=== PATIENT | male | born 1980 ===

== ENCOUNTER 2016-10-07 07:06 | Emergency (ER) | payer OTHER ==
[2016-10-07 08:08] VITALS: BP 144/89
--- NOTE | 2016-10-07 08:27 | RAD ---
INDICATION: Right middle finger dislocation, status post external reduction. TECHNIQUE: 3 views of the right middle finger finger were obtained. FINDINGS: There is focal soft tissue swelling at the proximal interphalangeal joint. The bones are in normal alignment. Joint spaces appear maintained. There is a small punctate 1 mm area of calcific density present adjacent to the lateral aspect of the proximal interphalangeal joint suggestive of a small chip fracture. IMPRESSION: 1. STATUS POST EXTERNAL REDUCTION. THE BONES ARE IN NORMAL ALIGNMENT. 2. PROBABLE SMALL PUNCTATE CHIP FRACTURE.
--- NOTE | 2016-10-07 10:56 | UC ---
Jose Martinez Billy, scribed for Blanca Dockery DO on 10/07/16 at 0720 . Hand/Wrist HPI - HPI Summary HPI Summary: Patient is a 35 year-old male coming [place] [facility] [place] with right middle finger pain starting 30 minutes ago while he was playing basketball. Pain was a constant 6/10 ache at onset. Patient states that the finger feels numb and swollen. He also states he has had intermittent headaches and sinus congestion recently. He denies any other complaints at this time. - History Of Current Complaint Chief Complaint: UCUpperExtremity Stated Complaint: FINGER INJURY Time Seen by Provider: 10/07/16 07:25 Hx Obtained From: Patient Mechanism Of Injury: Playing basketball Onset/Duration: Sudden Onset, Lasting Minutes, Still Present Severity Initially: Moderate Severity Currently: Moderate Pain Intensity: 6 Pain Scale Used: 0-10 Numeric Character Of Pain: Aching Aggravating Factor(s): Movement Alleviating: Nothing Associated Signs And Symptoms: Positive: Swelling, Numbness/Tingling - Allergies/Home Medications Allergies/Adverse Reactions: Allergies Allergy/AdvReac Type Severity Reaction Status Date / Time No Known Allergies Allergy Verified 10/07/16 07:11 Home Medications: Home Medications NK [No Home Medications Reported] 10/07/16 [History Confirmed 10/07/16] PMH/Surg Hx/FS Hx/Imm Hx Previously Healthy: Yes Endocrine History Of: Denies: Diabetes, Thyroid Disease Cardiovascular History Of: Denies: Cardiac Disorders, Hypertension Respiratory History Of: Denies: COPD, Asthma GI/ History Of: Denies: Ulcer - Surgical History Surgical History: None - Family History Known Family History: Positive: Diabetes, Blood Disorder - Hemophilia Negative: Cardiac Disease, Hypertension - Social History Occupation: Employed Full-time Lives: With Family Alcohol Use: None Substance Use Type: None Smoking Status (MU): Never Smoked Tobacco Review of Systems Constitutional: Negative Skin: Negative Eyes: Negative ENT: Other - sinus congestion/PAIN/QUIGLEY Respiratory: Negative Cardiovascular: Negative Gastrointestinal: Negative Genitourinary: Negative Motor: Negative Neurovascular: Negative Musculoskeletal: Other: - Right middle finger pain and swelling. Neurological: Headache, Numbness - Right middle finger. Psychological: Negative All Other Systems Reviewed And Are Negative: Yes Physical Exam Triage Information Reviewed: Yes Appearance: Well-Appearing, No Pain Distress, Well-Nourished Vital Signs: Initial Vital Signs Temp 96.8 F 10/07/16 07:11 Pulse 67 10/07/16 07:11 Resp 18 10/07/16 07:11 BP 147/90 10/07/16 07:11 Pulse Ox 97 10/07/16 07:11 Vital Signs Reviewed: Yes Eyes: Positive: Conjunctiva Clear. Negative: Discharge ENT: Positive: Hearing grossly normal. Negative: Muffled/hoarse voice Neck: Positive: Supple, Nontender Respiratory: Positive: Lungs clear, Normal breath sounds, No respiratory distress, No accessory muscle use Cardiovascular: Positive: RRR, No Murmur Musculoskeletal: Positive: Other: - Defect at PIP of right middle finger. Mid- phalanx clearly posterior to proximal phalanx. Neurological: Positive: Alert, Muscle Tone Normal Psychological Exam: Normal Psychological: Positive: Age Appropriate Behavior Skin Exam: Normal Procedures - Procedure Summary Procedure Summary: TO AVOID FURTHER SWELLING PT FINGER DISLOCATION, IMMEDIATE REDUCTION ATTEMPTED WITH PT CONSENT. PT MID AND PROX PHALANX WERTE GRIPPED FIRMLY WITH CLEAN WASH CLOTHES. TRACTION WAS APPLIED TO THE MID PHALANX. PALPABLE AND AUDIBLE CLICK WAS FELT/HEARD AND PHANGES MOVED BACK IN TO PROPER ALIGNMENT. WELL TOLERATED. NO COMPLICATIONS. IMMEDIATELY S/P REDUCTION, PT WAS ABLE TO FLEX AND EXT FINGER. Diagnostics - Radiology Right Middle Finger X-Ray Radiology Interpretation Completed By: Radiologist - 1. STATUS POST EXTERNAL REDUCTION. THE BONES ARE IN NORMAL ALIGNMENT. 2. PROBABLE SMALL PUNCTATE CHIP FRACTURE. Hand/Wrist Course/Dx - Differential Dx/Diagnosis Differential Diagnosis/HQI/PQRI: Dislocation, Fracture, Sprain, Strain Provider Diagnoses: DISLOCATION, FINGER FX Discharge - Discharge Plan Condition: Stable Disposition: HOME Patient Education Materials: Splint Care (ED), Finger Dislocation (ED), Sinusitis (ED) Referrals: Alfonso Rodriguez MD [Medical Doctor] - (Follow up in 3-5 days or as per ortho.) Additional Instructions: THE NETTI POT IN THE MORNINGS DISCUSSED. YOU MUST ALWAYS USE CLEAN WATER. REMEMBER, POSTURE IS AN IMPORTANT FACTOR IN SINUS DRAINAGE. MOVE YOUR NECK, BREATHE. FOLLOW-UP CARE: You should establish with a private physician for follow-up care. If you are unable to get a timely appointment, or if you are worsening, call us or return for re-evaluation. An additional resource available to assist in finding the appropriate physician for your health care needs is the [facility]erral [facility]. You may contact them by calling [phone]. The documentation as recorded by the Jose monge Billy accurately reflects the service I personally performed and the decisions made by me, Blanca Dockery DO.
== END 2016-10-07 08:50 | disposition home or self-care (01) ==
LOC: UCEAST 07:06
DX: S62.602A Fracture of unspecified phalanx of right middle finger, initial encounter for closed fracture (principal); X58.XXXA Exposure to other specified factors, initial encounter; Y93.67 Activity, basketball; Y92.310 Basketball court as the place of occurrence of the external cause
CPT/HCPCS: 73140; 99203; G0463